=== PATIENT | female | born 1980 | race Caucasian/White ===

== ENCOUNTER 2019-07-02 07:23 | Inpatient (IN) ==
[2019-07-02] MEDS ORDERED: IOPAMIDOL 100 ML BOTTLE IV ONE (07:24)
[2019-07-02] MEDS ORDERED: ONDANSETRON 4 MG/2 ML VIAL IV ONE (07:46)
[2019-07-02] MEDS ORDERED: 0.9 % SODIUM CHLORIDE 1,000 ML IV ONE ×2 (07:46→11:27)
--- NOTE | 2019-07-02 07:51 | Emergency Department Note ---
Abdominal Pain HPI - General Chief Complaint: Abdominal Pain Stated Complaint: "Pancreatitis" Time Seen by Provider: 07/02/19 07:45 Source: patient Mode of arrival: ambulatory Limitations: no limitations - History of Present Illness MD Complaint: abdominal pain Onset (ago): day(s) Consistency: constant Location: epigastric Severity: severe Severity scale (1-10): 10 Quality: stabbing, sharp Radiation: epigastric, back Migration to: no migration Improves with: medication Worsens with: nothing Context: other (History of alcoholic pancreatitis) Associated symptoms: Reports: denies other symptoms - Related Data Home Medications Medication Instructions Recorded Confirmed Pantoprazole [Protonix] 40 mg PO QAMAC 07/04/15 08/09/16 Omeprazole [PriLOSEC] 20 mg PO 08/09/16 Previous Rx's Medication Instructions Recorded Promethazine [Phenergan] 25 mg PO Q4-6HP PRN #20 tablet 07/04/15 Allergies Allergy/AdvReac Type Severity Reaction Status Date / Time NO KNOWN DRUG ALLERGIES AdvReac Unknown Uncoded 08/09/16 00:19 Review of Systems All systems ED: reviewed and negative except as stated. Abdominal Pain PMH - Past Medical History PMF Narrative: All Active Problems Pancreatitis, alcoholic, acute (Acute) Constipation (Acute) Left against medical advice (Acute) Ectopic without intrauterine (Acute) Medical history: Reports: other (pancreatitis, alcohol abuse) Surgical history ED: Reports: no surgical history Family history: Reports: no significant family history - Social History Smoking status: Current every day smoker Alcohol use: Reports: Occasionally (states occasionallt, heavier in the past) Physical Exam Limitations: no limitations General appearance: alert, in no apparent distress Head: atraumatic, normocephalic Eye: Present: normal appearance, PERRL, EOMI. Absent: scleral icterus, conjunctival injection ENT: Present: normal oropharynx, mucous membranes moist Neck: Present: trachea midline. Absent: lymphadenopathy, thyromegaly Chest: Present: symmetric chest wall rise Respiratory: Present: normal lung sounds bilaterally. Absent: respiratory distress, wheezes, stridor, accessory muscle use, prolonged expiratory phase Cardiovascular: Present: regular rate, normal rhythm. Absent: systolic murmur, diastolic murmur Abdominal: Present: tenderness, guarding. Absent: soft, distention, rebound, rigidity, organomegaly, mass Abdominal tenderness: Present: epigastrium Extremities: Absent: pedal edema, pretibial edema, calf tenderness Back: Absent: CVA tenderness (R), CVA tenderness (L), spinous process tenderness Neurological: Present: alert, oriented X3 Psychiatric: Present: normal affect, normal mood Skin: Present: warm, dry Course Course Narrative: 46-year-old female presenting to the emergency department chief complaint of midepigastric abdominal pain. Patient with past medical history significant for alcoholic pancreatitis as well as AMA issues. Patient states this feels identical to past pancreatitis. Patient treated in the emergency department with IV fluids laboratories morphine Zofran and will assess for need for admission. Differential diagnosis considered in this case includes obstruction, perforation, mesenteric ischemia, Crohn's disease, ulcerative colitis, viral gastroenteritis, spontaneous bacterial peritonitis, ketoacidosis, adrenal insufficiency, foodborne illness, IBS, constipation, diverticulosis, diverticulitis, AAA, abdominal compartment syndrome, abdominal migraine, chronic abdominal pain, colonic pseudoobstruction, zoster, hypercalcemia, hypothyroidism, pulmonary causes, nephrolithiasis, pyelonephritis, urinary tract infection, appendicitis, AMI, pancreatitis, peptic ulcer disease, GERD, gastritis, functional dyspepsia, gastroparesis, cyclical vomiting syndrome. Patient with severe pain as the primary symptom. Laboratory evaluation obtained and CT scan was pending at time of shift change Dr. powell will assume care. Vital Signs Temperature 97.7 F 07/02/19 07:23 Pulse Rate 110 H 07/02/19 07:23 Respiratory Rate 24 H 07/02/19 07:23 Blood Pressure 128/83 07/02/19 07:23 Pulse Oximetry (%) 98 07/02/19 07:23 Temperature 97.7 F 07/02/19 07:23 Pulse Rate 110 H 07/02/19 07:23 Respiratory Rate 24 H 07/02/19 07:23 Blood Pressure 128/83 07/02/19 07:23 Pulse Oximetry (%) 98 07/02/19 07:23 Abdominal Pain - Lab Data Result diagrams: 07/02/19 07:58 07/02/19 07:58 Lab Results 07/02/19 Range/Units 07:58 WBC 11.5 H (4.5-11.0) K/mcL RBC 4.93 (4.00-5.20) M/mcL Hgb 15.9 H (12.0-15.0) g/dL Hct 47.8 (36.0-48.0) % MCV 97.0 (80.0-100.0) fL MCH 32.4 (26.0-34.0) pg MCHC 33.4 (31.0-36.0) g/dL RDW 15.6 H (11.5-14.5) % Plt Count 347 (140-440) K/mcL MPV 8.4 (7.4-10.4) fL Gran % 74.3 (38.0-78.0) % Lymph % (Auto) 15.5 (15.5-49.0) % [place] % (Auto) 6.4 (1.0-12.0) % Eos % (Auto) 3.1 (0.0-7.0) % Baso % (Auto) 0.7 (0.0-2.0) % Gran # 8.6 H (1.8-8.0) K/mcL Lymph # (Auto) 1.8 (1.5-4.8) K/mcL [place] # (Auto) 0.7 (0.1-0.9) K/mcL Eos # (Auto) 0.4 (0.0-0.7) K/mcL Baso # (Auto) 0.1 (0.0-0.3) K/mcL Disposition Pt seen by OFFICE MACHINERY OR EQUIPMENT INSTALLER/PA only: No Clinical Impression: Abdominal pain Qualifiers: Abdominal location: epigastric Qualified Code(s): R10.13 - Epigastric pain Disposition: Still a Patient Condition: Fair Referrals: Mena Atkins ARNP [Primary Care Provider] -
[2019-07-02 08:38] LABS: Basophils # (Auto) 0.1 K/mcL (0.0-0.3); Basophils % (Auto) 0.7 % (0.0-2.0); Eosinophils # (Auto) 0.4 K/mcL (0.0-0.7); Eosinophils % (Auto) 3.1 % (0.0-7.0); Granulocytes % (Auto) 74.3 % (38.0-78.0); Hematocrit 47.8 % (36.0-48.0); Hemoglobin 15.9 g/dL (12.0-15.0); Lymphocytes # (Auto) 1.8 K/mcL (1.5-4.8); Lymphocytes % (Auto) 15.5 % (15.5-49.0); Mean Corpuscular HGB Conc 33.4 g/dL (31.0-36.0); Mean Platelet Volume 8.4 fL (7.4-10.4); Monocytes # (Auto) 0.7 K/mcL (0.1-0.9); Monocytes % (Auto) 6.4 % (1.0-12.0); Platelet Count 347 K/mcL (140-440); RBC 4.93 M/mcL (4.00-5.20); Red Cell Distribution Width 15.6 % (11.5-14.5); WBC 11.5 K/mcL (4.5-11.0)
[2019-07-02] MEDS ORDERED: PHENobarb/HYOSCY/ATROPINE/SCOP 1 DOSE BOTTLE PO ONE (08:50)
[2019-07-02] MEDS ORDERED: PROMETHAZINE 25 MG/ML VIAL IV ONE (08:50)
[2019-07-02 09:05] LABS: ALT/SGPT 100 U/l (0-40); AST/SGOT 339 U/l (0-37); Albumin 4.7 gm/dL (3.2-5.2); Albumin/Globulin Ratio 1.3 (1.0-2.3); Alkaline Phosphatase 125 U/L (39-117); Bilirubin,Total 0.8 mg/dL (0.0-1.0); Blood Urea Nitrogen 7 mg/dl (6-20); Calcium 9.3 mg/dl (8.6-10.4); Carbon Dioxide 21 mmol/L (22-30); Chloride 97 mmol/L (96-108); Globulin 3.6 gm/dL (2.2-3.7); Glomerular Filtration Rate 114; Glucose 122 mg/dL (70-105)
--- NOTE | 2019-07-02 09:39 | Cat Scan Report ---
History: Abdominal pain and pancreatitis TECHNIQUE: The patient was imaged following intravenous but no oral contrast scanning from the diaphragm to the symphysis pubis. Sagittal and coronal reformats were created. Radiation exposure was limited using dose reduction technology. FINDINGS: The lung bases are clear. Small hiatus hernia is present. There is mild generalized fatty infiltration of the liver. The overall size liver is normal and there is no evidence of cirrhosis. The spleen is normal in size but heterogeneous. There are scattered small low density structures throughout the spleen which have remained stable since prior study done on 07/04/15. The fatty infiltration of liver has become worse. The gallbladder and bile ducts are normal. The overall size of the pancreas is normal. Pancreatic duct is nondilated. There is no evidence of pancreatic mass or pseudocyst. The adrenals and right kidney are normal. There is a 1 cm cortical cyst medially in the middle third of left kidney. The left kidney is otherwise normal. There are abnormally dilated ovarian veins which communicate with dilated periuterine veins. A 2 cm follicle is seen in the right ovary. No abnormality is identified in the left ovary. The bowel pattern is normal. No abnormality is seen within the urinary bladder. Trace amount of ascites is seen in the cul-de-sac and the right paracolic gutter. There is no evidence of an abscess or perforated bowel. IMPRESSION: Acute pancreatitis. Pelvic venous congestion with dilated ovarian and adnexal veins Fatty infiltration of the liver Dr. Mena was called with the results There is edema/inflammation of the retroperitoneal fat surrounding the pancreas. This extends outward into the right anterior pararenal space. Interpreted and Authenticated by: Jefferson Nails 07/02/19
[2019-07-02] MEDS ORDERED: LACTATED RINGERS 1,000 ML IV ONE (09:51)
[2019-07-02] MEDS ORDERED: POTASSIUM CHLORIDE 40 MEQ in DEXTROSE 5% IN WATER 500 ML IV ONE (09:52)
--- NOTE | 2019-07-02 09:52 | Emergency Department Note ---
Abdominal Pain HPI - General Chief Complaint: Abdominal Pain Stated Complaint: "Pancreatitis" Time Seen by Provider: 07/02/19 07:45 Source: patient Mode of arrival: ambulatory Limitations: no limitations - History of Present Illness MD Complaint: abdominal pain Location: epigastric Severity: severe Severity scale (1-10): 10 Quality: stabbing, sharp Migration to: no migration Improves with: medication Worsens with: nothing Context: other (History of alcoholic pancreatitis) Associated symptoms: Reports: denies other symptoms - Related Data Home Medications Medication Instructions Recorded Confirmed Pantoprazole [Protonix] 40 mg PO QAMAC 07/04/15 08/09/16 Omeprazole [PriLOSEC] 20 mg PO 08/09/16 Previous Rx's Medication Instructions Recorded Promethazine [Phenergan] 25 mg PO Q4-6HP PRN #20 tablet 07/04/15 Allergies Allergy/AdvReac Type Severity Reaction Status Date / Time NO KNOWN DRUG ALLERGIES AdvReac Unknown Uncoded 08/09/16 00:19 Abdominal Pain PMH - Past Medical History Medical history: Reports: other (pancreatitis, alcohol abuse) Family history: Reports: no significant family history - Social History Smoking status: Current every day smoker Alcohol use: Reports: Occasionally (states occasionallt, heavier in the past) Physical Exam Limitations: no limitations General appearance: alert, in no apparent distress Course Vital Signs Temperature 97.7 F 07/02/19 07:23 Pulse Rate 110 H 07/02/19 07:23 Respiratory Rate 24 H 07/02/19 07:23 Blood Pressure 128/83 07/02/19 07:23 Pulse Oximetry (%) 98 07/02/19 07:23 Temperature 97.7 F 07/02/19 07:23 Pulse Rate 76 07/02/19 11:39 Respiratory Rate 36 H 07/02/19 11:39 Blood Pressure 140/117 07/02/19 11:33 Pulse Oximetry (%) 100 07/02/19 11:39 Abdominal Pain - MDM Narrative Medical decision making narrative: This patient does have pancreatitis with a lipase of 1200 and evidence on her CT scan of inflammation but no pseudocyst. Patient has gone home in the past and would like to try to consider that a little bit later if possible. Her potassi um was low so we will give her some IV potassium. Patient did eventually decide that she would like to be admitted and I discussed the case with Dr. Hill and she will be admitted to the hospital. - Lab Data Result diagrams: 07/02/19 07:58 07/02/19 07:58 Lab Results 07/02/19 07/02/19 Range/Units 07:58 07:58 WBC 11.5 H (4.5-11.0) K/mcL RBC 4.93 (4.00-5.20) M/mcL Hgb 15.9 H (12.0-15.0) g/dL Hct 47.8 (36.0-48.0) % MCV 97.0 (80.0-100.0) fL MCH 32.4 (26.0-34.0) pg MCHC 33.4 (31.0-36.0) g/dL RDW 15.6 H (11.5-14.5) % Plt Count 347 (140-440) K/mcL MPV 8.4 (7.4-10.4) fL Gran % 74.3 (38.0-78.0) % Lymph % (Auto) 15.5 (15.5-49.0) % [place] % (Auto) 6.4 (1.0-12.0) % Eos % (Auto) 3.1 (0.0-7.0) % Baso % (Auto) 0.7 (0.0-2.0) % Gran # 8.6 H (1.8-8.0) K/mcL Lymph # (Auto) 1.8 (1.5-4.8) K/mcL [place] # (Auto) 0.7 (0.1-0.9) K/mcL Eos # (Auto) 0.4 (0.0-0.7) K/mcL Baso # (Auto) 0.1 (0.0-0.3) K/mcL Sodium 136 (133-145) mmol/L Potassium 2.8 L* (3.3-5.1) mmol/L Chloride 97 (96-108) mmol/L Carbon Dioxide 21 L (22-30) mmol/L Anion Gap 18.0 H (8-16) BUN 7 (6-20) mg/dl Creatinine 0.6 (0.6-1.1) mg/dl GFR Calculation 114 Glucose 122 H (70-105) mg/dL Calcium 9.3 (8.6-10.4) mg/dl Total Bilirubin 0.8 (0.0-1.0) mg/dL AST 339 H (0-37) U/l ALT 100 H (0-40) U/l Alkaline Phosphatase 125 H (39-117) U/L Total Protein 8.3 (5.9-8.4) gm/dL Albumin 4.7 (3.2-5.2) gm/dL Globulin 3.6 (2.2-3.7) gm/dL Albumin/Globulin Ratio 1.3 (1.0-2.3) Lipase 1205 H (7-60) U/L - Radiology Data Radiology results reviewed: Yes I reviewed the patient's radiology results. Disposition Pt seen by PRODUCT MANAGEMENT ANALYST/PA only: No Clinical Impression: Pancreatitis Abdominal pain Qualifiers: Abdominal location: epigastric Qualified Code(s): R10.13 - Epigastric pain Disposition: Xfer As Inpt ([facility]) Condition: Fair Referrals: Mena Atkins ARNP [Primary Care Provider] - Time of Disposition: 11:43
[2019-07-02] MEDS ORDERED: HYDROmorphone 2 MG/ML VIAL IV SCH ×4 (10:00→14:34)
[2019-07-02 12:24] LABS: Appearance,Urine CLEAR; Bacteria,Urine 0 /hpf (0); Bilirubin,Urine NEG (NEG); Color,Urine YELLOW; Culture Indicated,Urine NO; Glucose,Urine (UA) NEGATIVE (NEG); Ketones,Urine 80 mg/dL (NEG); Leukocyte Esterase,Urine NEG /uL (NEG); Nitrate,Urine NEG (NEG); Protein,Urine NEG (NEG); Specific Gravity,Urine 1.042 (1.000-1.035); Urine Blood 0.2 mg/dL (<0.03); Urine RBC 4 /hpf (0-1); Urine Squamous Epithelial Cell 1 /hpf (0-4); Urine WBC 2 /hpf (0-4); Urobilinogen,Urine NEG (NEG)
[2019-07-02] MEDS ORDERED: HYDROmorphone 2 MG/ML VIAL IV ONE (12:58)
--- NOTE | 2019-07-02 13:17 | Internal Med History&Physical ---
Medical - H&P: [facility] Patient information: Note initiated : 07/02/19 at 1:17 pm Service Date, if different from initiated Date: [] Patient: Azucena Almendarez a 38 y/o F admitted on for "Pancreatitis". Chief Complaint: "My pancreas hurts" History of present illness: Ms. Almendarez is a 38 year old F with a history of alcohol induced pancreatitis as well as peptic ulcer disease who presents with abdominal pain. Her chief compla int is "my pancreas hurts". Onset of the pain was yesterday when she woke up. Pain is in the epigastric, radiating to the left and right and to the back. It is up to 10/10 in intensity. She used Excedrin yesterday without much relief, had to work and reported to work. She comes to the ED today due to ongoing pain. Associated with nausea and emesis but no hematemesis. No diarrhea. She is felt warm but not had a documented fever. She has a history of pancreatitis in 2014, which was felt to be secondary to alcohol. She has no history of biliary disease, though does have her gallbladder. She also has a history of peptic ulcer disease with an EGD on 05/30/2015. In the emergency department, imaging was consistent with pancreatitis, lipase was elevated, she is being admitted for further treatment. She required multiple doses of IV opioids to control her pain in the ED. All systems: reviewed and no additional remarkable complaints except as stated Medical - H&P: PMH Medical history: Pancreatitis, alcoholic, acute (Acute) Constipation (Acute) Ectopic without intrauterine (Acute) Surgical history: History of appendectomy History of section Pertinent family history: No history of pancreatitis or pancreatic disease. Strong history of heart failure. Social history: Drinks 1-2 drinks at night, though at times more than that. She works as a senior linux systems administrator. She smokes probably less than half a pack of cigarettes a day. Medical - H&P: Meds Home Medications Medication Instructions Recorded Confirmed Type Omeprazole [PriLOSEC] 20 mg PO PRN PRN 08/09/16 07/02/19 History Allergies Allergy/AdvReac Type Severity Reaction Status Date / Time NO KNOWN DRUG ALLERGIES AdvReac Unknown Uncoded 08/09/16 00:19 Medical - H&P: Exam - Constitutional Vitals: Temp Pulse Resp BP Pulse Ox 97.7 F 77 27 H 133/88 99 07/02/19 07:23 07/02/19 12:01 07/02/19 12:16 07/02/19 12:16 07/02/19 12:01 Exam: GENERAL: Alert, in moderate distress, having difficulty getting comfortable. Cooperative, appears stated age. HEENT: Atraumatic. PERRL, conjunctiva clear, no scleral icterus. Hearing grossly intact. Oropharynx with moist mucous membranes. NECK: Supple without meningismus, no thyromegaly RESPIRATORY: Breath sounds clear bilaterally without wheezes or rhonchi. Respiratory effort is unlabored. CARDIOVASCULAR: Regular rate and rhythm, no murmur gallop or rub. No peripheral edema. Carotid pulses 2+ without bruit. Pedal pulses 2+. GI: Abdomen soft, moderate severe epigastric tenderness to palpation without guarding or rebound. Bowel sounds are diminished. No hepatosplenomegaly appreciated, though exam limited by pain. Negative Hill sign MUSCULOSKELETAL: No joint erythema or swelling, normal range of motion in all extremities. SKIN: Intact, warm, dry. No lesions. Skin turgor normal. NEUROLOGIC: Cranial nerves II through XII grossly intact. Muscle mass normal. Strength 5/5 in the upper and lower extremities. Sensation intact to light touch bilaterally. PSYCHIATRIC: Alert, oriented x3, mood and affect congruent with situation, normal insight. Medical - H&P: Reslt - Labs CBC & Chem 7: 07/02/19 07:58 07/02/19 16:12 Labs: Short CBC 07/02/19 Range/Units 07:58 WBC 11.5 H (4.5-11.0) K/mcL Hgb 15.9 H (12.0-15.0) g/dL Hct 47.8 (36.0-48.0) % Plt Count 347 (140-440) K/mcL BMP 07/02/19 07:58 Sodium 136 Potassium 2.8 L* Chloride 97 Carbon Dioxide 21 L BUN 7 Creatinine 0.6 Glucose 122 H Calcium 9.3 Liver Function 07/02/19 Range/Units 07:58 Total Bilirubin 0.8 (0.0-1.0) mg/dL AST 339 H (0-37) U/l ALT 100 H (0-40) U/l Alkaline Phosphatase 125 H (39-117) U/L Albumin 4.7 (3.2-5.2) gm/dL Urine 07/02/19 Range/Units 11:28 Urine Color Yellow Urine Appearance Clear Urine pH 7.0 (5.0-9.0) Ur Specific [place] 1.042 H (1.000-1.035) Urine Protein Neg (NEG) mg/dL Urine Glucose (UA) Negative (NEG) mg/dL Lipase 1205 - Imaging and Cardiology CT scan - abdomen Status: image reviewed by me Additional comments: IMPRESSION: Acute pancreatitis. Pelvic venous congestion with dilated ovarian and adnexal veins Fatty infiltration of the liver Medical - H&P: A/P (1) Pancreatitis, alcoholic, acute Current visit: No Status: Acute (2) Hypokalemia Current visit: Yes Status: Acute (3) Abnormal liver enzymes Current visit: Yes Status: Acute - Narrative A/P Narrative: 38-year-old female with acute abdominal pain, biochemical and imaging evidence of acute pancreatitis consistent with her exam. Acute pancreatitis, suspect alcohol related. No evidence of biliary disease on imaging. Her liver enzymes are abnormal, however her bilirubin is not elevated and is suspect part of the abnormality is due to alcohol. She required significant amounts of opioid to control her symptoms initially in the ED. She will require inpatient admission for treatment of her pancreatitis. Plan: Inpatient admission, IV opioids and Toradol for pain control, aggressive hydration, follow exam, n.p.o. except for sips and chips. Hypokalemia. May be secondary to nausea and vomiting over the last 2 days. Plan: Replete. Abnormal transaminases and alk phos. She also has fatty liver on imaging. Suspect this is alcohol related. Plan: Follow. CODE STATUS: Full code
[2019-07-02] MEDS ORDERED: KETOROLAC 30 MG/ML VIAL IV ONE (13:49)
[2019-07-02] MEDS ORDERED: KETOROLAC 30 MG/ML VIAL IV PRN (14:34)
[2019-07-02] MEDS ORDERED: ACETAMINOPHEN 325 MG TABLET PO PRN (14:34)
[2019-07-02] MEDS ORDERED: PROCHLORPERAZINE 10 MG/2 ML VIAL IV PRN (14:34)
[2019-07-02] MEDS: HYDROmorphone 2 MG/ML VIAL IV PRN ×3 (14:48→22:22)
[2019-07-02] MEDS: 0.9 % SODIUM CHLORIDE 10 ML SYRINGE IV SCH ×2 (15:45→22:26)
[2019-07-02] MEDS ORDERED: FAMOTIDINE/PF 20 MG/2 ML VIAL IV ONE (15:50)
[2019-07-02] MEDS: HYDROcodone/APAP 5/325MG TABLET PO PRN ×2 (16:21→21:07)
[2019-07-02] MEDS: NICOTINE 14 MG PATCH TOPICAL SCH (16:21)
[2019-07-02] MEDS: 0.9 % SODIUM CHLORIDE 1,000 ML IV SCH ×2 (16:22→23:22)
[2019-07-02] MEDS: FAMOTIDINE/PF 20 MG/2 ML VIAL IV SCH (21:00)
[2019-07-03] MEDS: HYDROcodone/APAP 5/325MG TABLET PO PRN ×5 (02:20→22:49)
[2019-07-03] MEDS: HYDROmorphone 2 MG/ML VIAL IV PRN ×8 (02:20→21:34)
[2019-07-03] MEDS: 0.9 % SODIUM CHLORIDE 10 ML SYRINGE IV SCH ×2 (04:16→13:11)
[2019-07-03 06:03] LABS: Basophils # (Auto) 0 K/mcL (0.0-0.3); Basophils % (Auto) 0.6 % (0.0-2.0); Eosinophils # (Auto) 0.6 K/mcL (0.0-0.7); Eosinophils % (Auto) 8.5 % (0.0-7.0); Granulocytes % (Auto) 51.2 % (38.0-78.0); Hematocrit 38.7 % (36.0-48.0); Hemoglobin 12.9 g/dL (12.0-15.0); Lymphocytes # (Auto) 2.3 K/mcL (1.5-4.8); Lymphocytes % (Auto) 31.2 % (15.5-49.0); Mean Cell Volume 98.7 fL (80.0-100.0); Mean Corpuscular HGB Conc 33.3 g/dL (31.0-36.0); Mean Platelet Volume 8.8 fL (7.4-10.4); Monocytes # (Auto) 0.6 K/mcL (0.1-0.9); Monocytes % (Auto) 8.5 % (1.0-12.0); Platelet Count 256 K/mcL (140-440); RBC 3.92 M/mcL (4.00-5.20); Red Cell Distribution Width 15.8 % (11.5-14.5); WBC 7.3 K/mcL (4.5-11.0)
[2019-07-03 06:22] LABS: ALT/SGPT 60 U/l (0-40); AST/SGOT 96 U/l (0-37); Albumin 3.5 gm/dL (3.2-5.2); Albumin/Globulin Ratio 1.3 (1.0-2.3); Alkaline Phosphatase 89 U/L (39-117); Bilirubin,Direct < 0.2 mg/dL (0.0-0.3); Bilirubin,Total 0.5 mg/dL (0.0-1.0); Blood Urea Nitrogen 6 mg/dl (6-20); Calcium 8.1 mg/dl (8.6-10.4); Carbon Dioxide 21 mmol/L (22-30); Chloride 103 mmol/L (96-108); Globulin 2.7 gm/dL (2.2-3.7); Glomerular Filtration Rate 114; Glucose 116 mg/dL (70-105); Lactate Dehydrogenase 199 U/L (94-250); Phosphorous 2.4 mg/dL (2.7-4.5); Triglycerides 60 mg/dl (<150); Uric Acid 1.6 mg/dL (2.5-8.0)
[2019-07-03] MEDS: 0.9 % SODIUM CHLORIDE 1,000 ML IV SCH ×2 (07:41→15:20)
[2019-07-03] MEDS: FAMOTIDINE/PF 20 MG/2 ML VIAL IV SCH ×2 (09:02→21:34)
[2019-07-03] MEDS: NICOTINE 14 MG PATCH TOPICAL SCH (11:13)
[2019-07-03] MEDS ORDERED: ESOMEPRAZOLE 40 MG VIAL IV ONE (13:15)
--- NOTE | 2019-07-03 13:21 | Internal Med Progress Note ---
Medical - PN: Subj Patient information: Note initiated : 07/03/19 at 1:19 pm Service Date, if different from initiated Date: [] Patient: Azucena Almendarez 38 y/o F admitted on 07/02/19 for "Pancreatitis". Chief Complaint: Follow-up pancreatitis Interval history: Ms. Almendarez is a 38 year old F with a history of alcohol induced pancreatitis as well as peptic ulcer disease who presents with abdominal pain. Her chief compl aint is "my pancreas hurts". Onset of the pain was yesterday when she woke up. Pain is in the epigastric, radiating to the left and right and to the back. It is up to 10/10 in intensity. She used Excedrin yesterday without much relief, had to work and reported to work. She comes to the ED today due to ongoing pain. Associated with nausea and emesis but no hematemesis. No diarrhea. She is felt warm but not had a documented fever. She has a history of pancreatitis in 2014, which was felt to be secondary to alcohol. She has no history of biliary disease, though does have her gallbladder. She also has a history of peptic ulcer disease with an EGD on 05/30/2015. In the emergency department, imaging was consistent with pancreatitis, lipase was elevated, she is being admitted for further treatment. She required multiple doses of IV opioids to control her pain in the ED. 9/2patient still with significant pain, requiring intravenous and oral opioids as well as Toradol. No nausea or vomiting. Tolerating sips and ice chips, does not feel she is ready to try clears. Pain is radiating into the back. Hemoglobin is not concentrating, actually decreased with hydration as expected with dilution. BUN stable, does not appear to be having significant third spacing. Complaining of a lot of heartburn. Currently on Pepcid twice daily intravenously. - Constitutional Vitals: Vital Signs Temp Pulse Resp BP Pulse Ox 97.8 F 75 18 108/71 99 07/03/19 11:21 07/03/19 11:21 07/03/19 11:21 07/03/19 11:21 07/03/19 11:21 Period Temp Pulse Resp BP Sys/[place] Pulse Ox Last 24 Hr 97.6 F-98.2 F 75-101 15-20 90-132/55-89 96-100 Intake and Output 07/02/19 07/03/19 07/03/19 21:59 05:59 13:59 Intake Total 1817 626 7901 Output Total 600 50 Balance 422 032 1357 Weight 135 lb Intake & Output: Intake & Output 07/02/19 07/03/19 07/03/19 21:59 05:59 13:59 Intake Total 7652 690 8125 Output Total 600 50 Balance 168 427 8908 Weight 135 lb Intake: IV 0130 948 8109 Sodium Chloride 0.9% 1,000 ml @ 875 1000 125 mls/hr IV .Q8H [facility] Rx#: [id number] Oral 100 Output: Void Amount 600 50 Other: Urine Color Dark Yellow Urine Odor Normal # Voids 2 Exam: General: Sitting up in bed, appears uncomfortable Chest: Clear to auscultation to the bases, no rales Cardiovascular: Regular, no peripheral edema Abdomen: Soft, moderate epigastric tenderness to palpation, decreased bowel sounds Neuro: Alert, oriented to person, place, situation, ambulating in the holder. Medical - PN: Obj Da - Labs CBC & Chem 7: 07/03/19 04:42 07/03/19 04:42 Labs: Abnormal Lab Results 07/03/19 07/03/19 07/02/19 04:42 04:42 11:28 WBC RBC 3.92 L Hgb RDW 15.8 H Eos % (Auto) 8.5 H Gran # Potassium 3.0 L Carbon Dioxide 21 L Anion Gap Glucose 116 H Uric Acid 1.6 L Calcium 8.1 L Phosphorus 2.4 L GGT 102 H AST 96 H ALT 60 H Alkaline Phosphatase Lipase Ur Specific [place] 1.042 H Urine Ketones 80 A Urine Occult Blood 0.2 A Urine RBC 4 H 07/02/19 07/02/19 07:58 07:58 WBC 11.5 H RBC Hgb 15.9 H RDW 15.6 H Eos % (Auto) Gran # 8.6 H Potassium 2.8 L* Carbon Dioxide 21 L Anion Gap 18.0 H Glucose 122 H Uric Acid Calcium Phosphorus GGT AST 339 H ALT 100 H Alkaline Phosphatase 125 H Lipase 1205 H Ur Specific [place] Urine Ketones Urine Occult Blood Urine RBC Meds: Medications Acetaminophen (Tylenol) 650 mg PO Q6HP PRN PRN Reason: PAIN/FEVER > 101 Hydrocodone Bitart/Acetaminophen ([place] 5/325mg) 1 tab PO Q4HP PRN PRN Reason: PAIN LEVEL 3-6 Last Admin: 07/03/19 13:13 Dose: 1 tab Documented by: Al Hydrox/Mg Hydrox/Simethicone (Maalox) 30 ml PO Q4HP PRN PRN Reason: Dyspepsia Esomeprazole Magnesium (Nexium) 40 mg IV QAMAC [facility] Esomeprazole Magnesium (Nexium) 40 mg IV ONCE [facility] Famotidine (Pepcid) 20 mg IV Q12 [facility] Stop: 07/04/19 10:00 Last Admin: 07/03/19 09:02 Dose: 20 mg Documented by: Hydromorphone HCl (Dilaudid) 2 mg IV Q2HP PRN PRN Reason: PAIN LEVEL > 6 Sodium Chloride (Sodium Chloride 0.9%) 1,000 mls @ 125 mls/hr IV .Q8H [facility] Last Admin: 07/03/19 07:41 Dose: 125 mls/hr Documented by: Ketorolac Tromethamine (Toradol) 30 mg IV Q6HP PRN PRN Reason: Pain Stop: 07/05/19 13:09 Nicotine (Nicoderm) 14 mg TOPICAL DAILY@1000 QAMAR Last Admin: 07/03/19 11:13 Dose: 14 mg Documented by: Ondansetron HCl (Zofran) 4 mg IV Q6HP PRN PRN Reason: Nausea And Vomiting Prochlorperazine (Compazine) 5 mg IV Q4HP PRN PRN Reason: Nausea And Vomiting Sodium Chloride (Saline Flush) 10 ml IV Q8 [facility] Last Admin: 07/03/19 13:11 Dose: Not Given Documented by: Medical - PN: A/P (1) Pancreatitis, alcoholic, acute Status: Acute Current Visit: No (2) Hypokalemia Status: Acute Current Visit: Yes (3) Abnormal liver enzymes Status: Acute Current Visit: Yes - Narrative A/P Narrative: 38-year-old female with acute abdominal pain, biochemical and imaging evidence of acute pancreatitis consistent with her exam. Acute pancreatitis. Stable though not significantly improving. No current evidence of third spacing or hemoconcentration. Suspect etiology is alcohol related. No evidence of biliary disease on imaging. She still requires significant amount of opioids to help control her symptoms and requires inpatient care. High risk given use of high-dose intravenous controlled substances. Plan: Inpatient admission, IV opioids and Toradol for pain control, aggressive hydration, follow exam, n.p.o. except for sips and chips. Hypokalemia. May be secondary to nausea and vomiting over the last 2 days. Still with hypokalemia this morning Plan: Replete as needed. Abnormal transaminases and alk phos. Improving. She also has fatty liver on imaging. Suspect this is alcohol related. Plan: Follow.
[2019-07-03] MEDS: MAG HYDROX/AL HYDROX/SIMETH 30 ML ORAL.SUSP PO PRN (13:47)
[2019-07-03] MEDS ORDERED: POTASSIUM CHLORIDE 40 MEQ in DEXTROSE 5% IN WATER 500 ML IV ONE (18:24)
[2019-07-03] MEDS ORDERED: POTASSIUM CHLORIDE 20 MEQ/10 ML VIAL IV ONE (19:23)
[2019-07-03] MEDS: KETOROLAC 30 MG/ML VIAL IV PRN (22:49)
[2019-07-04] MEDS: HYDROmorphone 2 MG/ML VIAL IV PRN ×10 (00:13→22:06)
[2019-07-04] MEDS: 0.9 % SODIUM CHLORIDE 1,000 ML IV SCH ×5 (02:38→23:35)
[2019-07-04] MEDS: 0.9 % SODIUM CHLORIDE 10 ML SYRINGE IV SCH ×4 (06:12→21:50)
[2019-07-04] MEDS: HYDROcodone/APAP 5/325MG TABLET PO PRN ×4 (07:30→19:52)
[2019-07-04 08:33] LABS: Basophils # (Auto) 0 K/mcL (0.0-0.3); Basophils % (Auto) 0.6 % (0.0-2.0); Eosinophils # (Auto) 0.5 K/mcL (0.0-0.7); Eosinophils % (Auto) 6.3 % (0.0-7.0); Granulocytes % (Auto) 48.9 % (38.0-78.0); Hematocrit 37.6 % (36.0-48.0); Hemoglobin 12.7 g/dL (12.0-15.0); Lymphocytes # (Auto) 2.6 K/mcL (1.5-4.8); Mean Cell Volume 97.4 fL (80.0-100.0); Mean Corpuscular HGB Conc 33.7 g/dL (31.0-36.0); Mean Platelet Volume 8.6 fL (7.4-10.4); Monocytes # (Auto) 0.7 K/mcL (0.1-0.9); Monocytes % (Auto) 9.2 % (1.0-12.0); Platelet Count 256 K/mcL (140-440); RBC 3.87 M/mcL (4.00-5.20); WBC 7.4 K/mcL (4.5-11.0)
[2019-07-04 08:53] LABS: ALT/SGPT 46 U/l (0-40); AST/SGOT 47 U/l (0-37); Albumin 3.4 gm/dL (3.2-5.2); Albumin/Globulin Ratio 1.3 (1.0-2.3); Alkaline Phosphatase 107 U/L (39-117); Bilirubin,Direct < 0.2 mg/dL (0.0-0.3); Bilirubin,Total 0.4 mg/dL (0.0-1.0); Blood Urea Nitrogen 4 mg/dl (6-20); Calcium 8.1 mg/dl (8.6-10.4); Carbon Dioxide 24 mmol/L (22-30); Chloride 106 mmol/L (96-108); Globulin 2.6 gm/dL (2.2-3.7); Glomerular Filtration Rate 114; Glucose 95 mg/dL (70-105); Lactate Dehydrogenase 152 U/L (94-250); Phosphorous 3.1 mg/dL (2.7-4.5); Triglycerides 111 mg/dl (<150); Uric Acid 2.3 mg/dL (2.5-8.0)
[2019-07-04] MEDS: ESOMEPRAZOLE 40 MG VIAL IV SCH (08:57)
[2019-07-04] MEDS: FAMOTIDINE/PF 20 MG/2 ML VIAL IV SCH (08:57)
[2019-07-04] MEDS: NICOTINE 14 MG PATCH TOPICAL SCH (08:58)
[2019-07-04] MEDS: KETOROLAC 30 MG/ML VIAL IV PRN ×2 (10:59→16:55)
[2019-07-04] MEDS: ONDANSETRON 4 MG/2 ML VIAL IV PRN (12:11)
--- NOTE | 2019-07-04 12:14 | Internal Med Progress Note ---
Medical - PN: Subj Patient information: Note initiated : 07/04/19 at 12:11 pm Service Date, if different from initiated Date: [] Patient: Azucena Almendarez a 38 y/o F admitted on 07/02/19 for "Pancreatitis". Chief Complaint: Follow-up pancreatitis Interval history: Ms. Almendarez is a 38 year old F with a history of alcohol induced pancreatitis as well as peptic ulcer disease who presents with abdominal pain. Her chief comp laint is "my pancreas hurts". Onset of the pain was yesterday when she woke up. Pain is in the epigastric, radiating to the left and right and to the back. It is up to 10/10 in intensity. She used Excedrin yesterday without much relief, had to work and reported to work. She comes to the ED today due to ongoing pain. Associated with nausea and emesis but no hematemesis. No diarrhea. She is felt warm but not had a documented fever. She has a history of pancreatitis in 2014, which was felt to be secondary to alcohol. She has no history of biliary disease, though does have her gallbladder. She also has a history of peptic ulcer disease with an EGD on 05/30/2015. In the emergency department, imaging was consistent with pancreatitis, lipase was elevated, she is being admitted for further treatment. She required multiple doses of IV opioids to control her pain in the ED. 9/2patient still with significant pain, requiring intravenous and oral opioids as well as Toradol. No nausea or vomiting. Tolerating sips and ice chips, does not feel she is ready to try clears. Pain is radiating into the back. Hemoglobin is not concentrating, actually decreased with hydration as expected with dilution. BUN stable, does not appear to be having significant third spacing. Complaining of a lot of heartburn. Currently on Pepcid twice daily intravenously. 9/3slowly improving. Better pain control on higher dose of hydromorphone. Less radiation into her back this morning. Feels like she might be able to try clear liquids. Reflux symptoms improved with acid suppression therapy. Discussed need to abstain from alcohol entirely to prevent any further episodes of pancreatitis. - Constitutional Vitals: Vital Signs Temp Pulse Resp BP Pulse Ox 98.0 F 84 20 118/79 97 07/04/19 07:55 07/04/19 07:55 07/04/19 07:55 07/04/19 07:55 07/04/19 07:55 Period Temp Pulse Resp BP Sys/[place] Pulse Ox Last 24 Hr 97.9 F-98.6 F 75-85 18-20 118-131/77-89 97-99 Intake and Output 07/03/19 07/04/19 07/04/19 21:59 05:59 13:59 Intake Total 1056 1000 1000 Output Total 300 500 400 Balance 756 500 600 Weight 143 lb 11.2 oz Intake & Output: Intake & Output 07/03/19 07/04/19 07/04/19 21:59 05:59 13:59 Intake Total 1056 1000 1000 Output Total 300 500 400 Balance 756 500 600 Weight 143 lb 11.2 oz Intake: IV 956 1000 1000 Sodium Chloride 0.9% 1,000 ml @ 956 1000 1000 125 mls/hr IV .Q8H [facility] Rx#: [id number] Oral 100 0 Output: Void Amount 300 500 400 Other: Urine Appearance Cloudy Urine Color Dark Yellow # Voids 1 Exam: General: Laying in bed, mildly uncomfortable Chest: Clear, good aeration to bases Cardiovascular: Regular Abdomen soft, mild to moderate epigastric tenderness, no guarding or rebound Extremities: No edema Neuro: Alert, oriented x3, nonfocal Medical - PN: Obj Da - Labs CBC & Chem 7: 07/04/19 07:30 07/04/19 07:30 Labs: Abnormal Lab Results 07/04/19 07/04/19 07/03/19 07:30 07:30 04:42 WBC RBC 3.87 L Hgb RDW 16.0 H Eos % (Auto) Gran # Potassium 3.0 L Carbon Dioxide 21 L Anion Gap BUN 4 L Glucose 116 H Uric Acid 2.3 L 1.6 L Calcium 8.1 L 8.1 L Phosphorus 2.4 L GGT 173 H 102 H AST 47 H 96 H ALT 46 H 60 H Alkaline Phosphatase Lipase 194 H Ur Specific [place] Urine Ketones Urine Occult Blood Urine RBC 07/03/19 07/02/19 07/02/19 04:42 11:28 07:58 WBC 11.5 H RBC 3.92 L Hgb 15.9 H RDW 15.8 H 15.6 H Eos % (Auto) 8.5 H Gran # 8.6 H Potassium Carbon Dioxide Anion Gap BUN Glucose Uric Acid Calcium Phosphorus GGT AST ALT Alkaline Phosphatase Lipase Ur Specific [place] 1.042 H Urine Ketones 80 A Urine Occult Blood 0.2 A Urine RBC 4 H 07/02/19 07:58 WBC RBC Hgb RDW Eos % (Auto) Gran # Potassium 2.8 L* Carbon Dioxide 21 L Anion Gap 18.0 H BUN Glucose 122 H Uric Acid Calcium Phosphorus GGT AST 339 H ALT 100 H Alkaline Phosphatase 125 H Lipase 1205 H Ur Specific [place] Urine Ketones Urine Occult Blood Urine RBC Meds: Medications Acetaminophen (Tylenol) 650 mg PO Q6HP PRN PRN Reason: PAIN/FEVER > 101 Hydrocodone Bitart/Acetaminophen ([place] 5/325mg) 1 tab PO Q4HP PRN PRN Reason: PAIN LEVEL 3-6 Last Admin: 07/04/19 11:39 Dose: 1 tab Documented by: Al Hydrox/Mg Hydrox/Simethicone (Maalox) 30 ml PO Q4HP PRN PRN Reason: Dyspepsia Last Admin: 07/03/19 13:47 Dose: 30 ml Documented by: Esomeprazole Magnesium (Nexium) 40 mg IV QAMAC [facility] Last Admin: 07/04/19 08:57 Dose: 40 mg Documented by: Hydromorphone HCl (Dilaudid) 2 mg IV Q2HP PRN PRN Reason: PAIN LEVEL > 6 Last Admin: 07/04/19 11:41 Dose: 2 mg Documented by: Sodium Chloride (Sodium Chloride 0.9%) 1,000 mls @ 125 mls/hr IV .Q8H [facility] Last Admin: 07/04/19 10:59 Dose: 125 mls/hr Documented by: Ketorolac Tromethamine (Toradol) 30 mg IV Q6HP PRN PRN Reason: Pain Stop: 07/05/19 13:09 Last Admin: 07/04/19 10:59 Dose: 30 mg Documented by: Nicotine (Nicoderm) 14 mg TOPICAL DAILY@1000 [facility] Last Admin: 07/04/19 08:58 Dose: 14 mg Documented by: Ondansetron HCl (Zofran) 4 mg IV Q6HP PRN PRN Reason: Nausea And Vomiting Prochlorperazine (Compazine) 5 mg IV Q4HP PRN PRN Reason: Nausea And Vomiting Sodium Chloride (Saline Flush) 10 ml IV Q8 [facility] Last Admin: 07/04/19 06:12 Dose: Not Given Documented by: Medical - PN: A/P - Time Spent With Patient Total time spent is greater than 50% in coordination of care (as documented) at patient's floor/unit and/or counseling patient: 25 - 35 minutes (1) Pancreatitis, alcoholic, acute Status: Acute Current Visit: No (2) Hypokalemia Status: Acute Current Visit: Yes (3) Abnormal liver enzymes Status: Acute Current Visit: Yes - Narrative A/P Narrative: 38-year-old female with acute abdominal pain, biochemical and imaging evidence of acute pancreatitis consistent with her exam. Acute pancreatitis. Improving. No current evidence of third spacing or hemoconcentration. Suspect etiology is alcohol related. No evidence of biliary disease on imaging. She still requires significant amount of opioids to help c ontrol her symptoms and requires inpatient care. High risk given use of high- dose intravenous controlled substances. Plan: Continue IV opioids and Toradol for pain control, aggressive hydration, fo llow exam, begin clear liquid. Hypokalemia. May be secondary to nausea and vomiting over the last 2 days. Still with hypokalemia this morning Plan: Replete as needed. Abnormal transaminases and alk phos. Improving. She also has fatty liver on imaging. Suspect this is alcohol related. Plan: Follow.
[2019-07-04] MEDS: MAG HYDROX/AL HYDROX/SIMETH 30 ML ORAL.SUSP PO PRN (15:36)
[2019-07-05] MEDS: HYDROmorphone 2 MG/ML VIAL IV PRN ×8 (00:04→22:14)
[2019-07-05] MEDS: KETOROLAC 30 MG/ML VIAL IV PRN ×2 (00:05→07:22)
[2019-07-05] MEDS: HYDROcodone/APAP 5/325MG TABLET PO PRN ×6 (00:16→22:14)
[2019-07-05] MEDS: 0.9 % SODIUM CHLORIDE 1,000 ML IV SCH ×5 (02:43→19:49)
[2019-07-05 06:36] LABS: Basophils # (Auto) 0.1 K/mcL (0.0-0.3); Basophils % (Auto) 0.8 % (0.0-2.0); Eosinophils # (Auto) 0.4 K/mcL (0.0-0.7); Eosinophils % (Auto) 5.2 % (0.0-7.0); Granulocytes % (Auto) 49.7 % (38.0-78.0); Hemoglobin 11.8 g/dL (12.0-15.0); Lymphocytes # (Auto) 2.5 K/mcL (1.5-4.8); Lymphocytes % (Auto) 33.8 % (15.5-49.0); Mean Cell Volume 98.7 fL (80.0-100.0); Mean Corpuscular HGB Conc 32.8 g/dL (31.0-36.0); Mean Platelet Volume 8.6 fL (7.4-10.4); Monocytes # (Auto) 0.8 K/mcL (0.1-0.9); Monocytes % (Auto) 10.5 % (1.0-12.0); Platelet Count 246 K/mcL (140-440); RBC 3.64 M/mcL (4.00-5.20); Red Cell Distribution Width 15.3 % (11.5-14.5); WBC 7.4 K/mcL (4.5-11.0)
[2019-07-05] MEDS: 0.9 % SODIUM CHLORIDE 10 ML SYRINGE IV SCH ×3 (07:07→22:15)
[2019-07-05 07:20] LABS: ALT/SGPT 32 U/l (0-40); AST/SGOT 27 U/l (0-37); Albumin 3.2 gm/dL (3.2-5.2); Albumin/Globulin Ratio 1.2 (1.0-2.3); Alkaline Phosphatase 102 U/L (39-117); Bilirubin,Direct < 0.2 mg/dL (0.0-0.3); Bilirubin,Total 0.3 mg/dL (0.0-1.0); Blood Urea Nitrogen 3 mg/dl (6-20); Calcium 8.2 mg/dl (8.6-10.4); Carbon Dioxide 23 mmol/L (22-30); Chloride 104 mmol/L (96-108); Globulin 2.6 gm/dL (2.2-3.7); Glomerular Filtration Rate 114; Glucose 102 mg/dL (70-105); Lactate Dehydrogenase 188 U/L (94-250); Phosphorous 3.1 mg/dL (2.7-4.5); Triglycerides 112 mg/dl (<150); Uric Acid 2.9 mg/dL (2.5-8.0)
[2019-07-05] MEDS: ESOMEPRAZOLE 40 MG VIAL IV SCH (07:21)
[2019-07-05] MEDS ORDERED: HYDROmorphone 2 MG/ML VIAL IV PRN ×2 (08:49→13:59)
[2019-07-05] MEDS: NICOTINE 14 MG PATCH TOPICAL SCH (10:16)
--- NOTE | 2019-07-05 12:11 | Internal Med Progress Note ---
Medical - PN: Subj Patient information: Note initiated : 07/05/19 at 11:59 am Service Date, if different from initiated Date: [] Patient: Azucena Almendarez a 38 y/o F admitted on 07/02/19 for "Pancreatitis". Chief Complaint: [] Interval history: Ms. Almendarez is a 38 year old F with a history of alcohol induced pancreatitis as well as peptic ulcer disease who presents with abdominal pain. Her chief complaint is "my pancreas hurts". Onset of the pain was yesterday when she woke up. Pain is in the epigastric, radiating to the left and right and to the back. It is up to 10/10 in intensity. She used Excedrin yesterday without much relief, had to work and reported to work. She comes to the ED today due to ongoing pain. Associated with nausea and emesis but no hematemesis. No diarrhea. She is felt warm but not had a documented fever. She has a history of pancreatitis in 2014, which was felt to be secondary to alcohol. She has no history of biliary disease, though does have her gallbladder. She also has a history of peptic ulcer disease with an EGD on 05/30/2015. In the emergency department, imaging was consistent with pancreatitis, lipase was elevated, she is being admitted for further treatment. She required multiple doses of IV opioids to control her pain in the ED. 9/2patient still with significant pain, requiring intravenous and oral opioids as well as Toradol. No nausea or vomiting. Tolerating sips and ice chips, does not feel she is ready to try clears. Pain is radiating into the back. Hemoglobin is not concentrating, actually decreased with hydration as expected with dilution. BUN stable, does not appear to be having significant third spacing. Complaining of a lot of heartburn. Currently on Pepcid twice daily intravenously. 9/3slowly improving. Better pain control on higher dose of hydromorphone. Less radiation into her back this morning. Feels like she might be able to try clear liquids. Reflux symptoms improved with acid suppression therapy. Discussed need to abstain from alcohol entirely to prevent any further episodes of pancreatitis. 9/4-patient needing excessive dose of opioid. However clinical finding disproportionate to lab and hemodynamic changes. Keep n.p.o./crystalloids. Repeat imaging in a.m., check CRP. Counseled for alcohol cessation. Lipase downtrending from 1200 to near normal level at 125 - Constitutional Vitals: Vital Signs Temp Pulse Resp BP Pulse Ox 96.6 F L 67 14 107/68 98 07/05/19 07:40 07/05/19 07:40 07/05/19 07:40 07/05/19 07:40 07/05/19 07:40 Period Temp Pulse Resp BP Sys/[place] Pulse Ox Last 24 Hr 96.6 F-98.6 F 67-78 12-20 107-142/68-92 96-99 Intake and Output 07/04/19 07/05/19 07/05/19 21:59 05:59 13:59 Intake Total 1951 1435 1000 Output Total 1150 1300 Balance 901 674 3940 Weight 142 lb Intake & Output: Intake & Output 07/04/19 07/05/19 07/05/19 21:59 05:59 13:59 Intake Total 1951 1435 1000 Output Total 1150 1300 Balance 450 931 8419 Weight 142 lb Intake: IV 566 208 3679 Sodium Chloride 0.9% 1,000 ml @ 575 829 2207 125 mls/hr IV .Q8H [facility] Rx#: [id number] Oral 960 460 Output: Void Amount 1150 1300 Other: Meal Dinner Percent of Meal Consumed 100% Feeding Ability Independent Urine Color Straw Dark Yellow General appearance: moderate distress (Abdominal pain/nausea) Exam: Anxious and tearful Nonlabored breathing Nondistended abdomen No lymphedema or icterus Medical - PN: Obj Da - Labs CBC & Chem 7: 07/05/19 04:20 07/05/19 04:20 Labs: Abnormal Lab Results 07/05/19 07/05/19 07/04/19 04:20 04:20 07:30 RBC 3.64 L 3.87 L Hgb 11.8 L RDW 15.3 H 16.0 H Eos % (Auto) Potassium Carbon Dioxide BUN 3 L Glucose Uric Acid Calcium 8.2 L Phosphorus GGT 176 H AST ALT Total Protein 5.8 L Lipase 125 H Ur Specific [place] Urine Ketones Urine Occult Blood Urine RBC 07/04/19 07/03/19 07/03/19 07:30 04:42 04:42 RBC 3.92 L Hgb RDW 15.8 H Eos % (Auto) 8.5 H Potassium 3.0 L Carbon Dioxide 21 L BUN 4 L Glucose 116 H Uric Acid 2.3 L 1.6 L Calcium 8.1 L 8.1 L Phosphorus 2.4 L GGT 173 H 102 H AST 47 H 96 H ALT 46 H 60 H Total Protein Lipase 194 H Ur Specific [place] Urine Ketones Urine Occult Blood Urine RBC 07/02/19 11:28 RBC Hgb RDW Eos % (Auto) Potassium Carbon Dioxide BUN Glucose Uric Acid Calcium Phosphorus GGT AST ALT Total Protein Lipase Ur Specific [place] 1.042 H Urine Ketones 80 A Urine Occult Blood 0.2 A Urine RBC 4 H Meds: Medications Acetaminophen (Tylenol) 650 mg PO Q6HP PRN PRN Reason: PAIN/FEVER > 101 Hydrocodone Bitart/Acetaminophen ([place] 5/325mg) 1 tab PO Q4HP PRN PRN Reason: PAIN LEVEL 3-6 Last Admin: 07/05/19 10:15 Dose: 1 tab Documented by: Al Hydrox/Mg Hydrox/Simethicone (Maalox) 30 ml PO Q4HP PRN PRN Reason: Dyspepsia Last Admin: 07/04/19 15:36 Dose: 30 ml Documented by: Esomeprazole Magnesium (Nexium) 40 mg IV QAMAC [facility] Last Admin: 07/05/19 07:21 Dose: 40 mg Documented by: Hydromorphone HCl (Dilaudid) 0.5 mg IV Q4-6HP PRN PRN Reason: PAIN LEVEL > 6 Last Admin: 07/05/19 11:31 Dose: 0.5 mg Documented by: Sodium Chloride (Sodium Chloride 0.9%) 1,000 mls @ 125 mls/hr IV .Q8H [facility] Last Admin: 07/05/19 11:37 Dose: 125 mls/hr Documented by: Ketorolac Tromethamine (Toradol) 30 mg IV Q6HP PRN PRN Reason: Pain Stop: 07/05/19 13:09 Last Admin: 07/05/19 07:22 Dose: 30 mg Documented by: Nicotine (Nicoderm) 14 mg TOPICAL DAILY@1000 [facility] Last Admin: 07/05/19 10:16 Dose: 14 mg Documented by: Ondansetron HCl (Zofran) 4 mg IV Q6HP PRN PRN Reason: Nausea And Vomiting Last Admin: 07/04/19 12:11 Dose: 4 mg Documented by: Prochlorperazine (Compazine) 5 mg IV Q4HP PRN PRN Reason: Nausea And Vomiting Sodium Chloride (Saline Flush) 10 ml IV Q8 [facility] Last Admin: 07/05/19 07:07 Dose: Not Given Documented by: Medical - PN: A/P - Time Spent With Patient Total time spent is greater than 50% in coordination of care (as documented) at patient's floor/unit and/or counseling patient: 25 - 35 minutes - Narrative A/P Narrative: 38-year-old female with acute abdominal pain, biochemical and imaging evidence of acute pancreatitis consistent with her exam. * Acute alcoholic pancreatitis. No evidence of pseudocyst or hemorrhage. Continue conservative management with n.p.o., crystalloids, antiemetics and pain management. Alcohol cessation counseling. * Hypokalemia. Replace as indicated * Abdominal pain on as needed opioids Plan * Continue crystalloids, n.p.o. with conservative management * Electrolyte replacement * Repeat CT abdomen in a.m. * Inflammatory marker
[2019-07-05] MEDS: ONDANSETRON 4 MG/2 ML VIAL IV PRN (13:02)
[2019-07-05] MEDS: MAG HYDROX/AL HYDROX/SIMETH 30 ML ORAL.SUSP PO PRN (14:04)
[2019-07-06] MEDS: 0.9 % SODIUM CHLORIDE 1,000 ML IV SCH ×5 (00:59→16:36)
[2019-07-06] MEDS: HYDROcodone/APAP 5/325MG TABLET PO PRN ×4 (03:53→18:46)
[2019-07-06] MEDS: HYDROmorphone 2 MG/ML VIAL IV PRN ×3 (03:54→14:17)
[2019-07-06] MEDS: 0.9 % SODIUM CHLORIDE 10 ML SYRINGE IV SCH ×2 (04:23→16:35)
[2019-07-06 06:03] LABS: Basophils # (Auto) 0 K/mcL (0.0-0.3); Basophils % (Auto) 0.5 % (0.0-2.0); Eosinophils # (Auto) 0.3 K/mcL (0.0-0.7); Eosinophils % (Auto) 4.3 % (0.0-7.0); Granulocytes % (Auto) 53.9 % (38.0-78.0); Hematocrit 36.7 % (36.0-48.0); Hemoglobin 12.5 g/dL (12.0-15.0); Lymphocytes % (Auto) 31.2 % (15.5-49.0); Mean Cell Volume 97.4 fL (80.0-100.0); Mean Corpuscular HGB Conc 34.1 g/dL (31.0-36.0); Mean Platelet Volume 8.5 fL (7.4-10.4); Monocytes # (Auto) 0.6 K/mcL (0.1-0.9); Monocytes % (Auto) 10.1 % (1.0-12.0); Platelet Count 273 K/mcL (140-440); RBC 3.76 M/mcL (4.00-5.20); Red Cell Distribution Width 15.4 % (11.5-14.5); WBC 6.3 K/mcL (4.5-11.0)
[2019-07-06 06:27] LABS: ALT/SGPT 25 U/l (0-40); AST/SGOT 18 U/l (0-37); Albumin 3.2 gm/dL (3.2-5.2); Albumin/Globulin Ratio 1.2 (1.0-2.3); Alkaline Phosphatase 95 U/L (39-117); Bilirubin,Direct < 0.2 mg/dL (0.0-0.3); Bilirubin,Total 0.3 mg/dL (0.0-1.0); Blood Urea Nitrogen 3 mg/dl (6-20); C-Reactive Protein 0.4 mg/dl (0.0-0.8); Calcium 8.3 mg/dl (8.6-10.4); Carbon Dioxide 24 mmol/L (22-30); Chloride 103 mmol/L (96-108); Globulin 2.6 gm/dL (2.2-3.7); Glomerular Filtration Rate 121; Glucose 137 mg/dL (70-105); Lactate Dehydrogenase 142 U/L (94-250); Phosphorous 3.2 mg/dL (2.7-4.5); Triglycerides 116 mg/dl (<150); Uric Acid 3.2 mg/dL (2.5-8.0)
[2019-07-06] MEDS: ESOMEPRAZOLE 40 MG VIAL IV SCH (07:49)
[2019-07-06] MEDS ORDERED: IOPAMIDOL 100 ML BOTTLE IV ONE (09:10)
[2019-07-06] MEDS: NICOTINE 14 MG PATCH TOPICAL SCH (09:35)
--- NOTE | 2019-07-06 12:38 | Cat Scan Report ---
CLINICAL INFORMATION: Pancreatitis COMPARISON: Abdomen and pelvic CT 07/04/2015 and 07/02/2019 TECHNIQUE: Following enteric contrast, 80ml of Isovue-370 were injected and 60 seconds later .625mm helical slices were obtained from the mid heart through the iliac crests. Following reconstructions, sagittal, coronal and axial reformatted images were processed. Exam was reviewed at bone, lung and soft tissue windows 5 minutes later repeat 5 mm helical slices were obtained through the kidneys. The exam was performed using radiation dose optimization techniques including, but not limited to, automated exposure control, adjustment of the mA and/or kV according to patient size and use of iterative reconstruction technique. FINDINGS: Lung bases show no abnormality - no effusion. The visualized heart is normal. Images should the abdomen show mild fatty change within the liver with more focally concentrated fat in the lateral segment left hepatic lobe along the ligament teres. This demonstrates long-term stability (07/04/2015). No focal significant focal hepatic lesions. Small amount of pericholecystic fluid is new from the previous exam. The inflammation, previously seen in the pancreatic parenchyma and surrounding fat, has almost totally resolved. A few mildly enlarged retroperitoneal lymph nodes nodes in the peripancreatic and periduodenal region are unchanged should represent benign reactive adenopathy related to pancreatitis. Both kidneys, adrenal glands, and aorta are normal. Scattered small benign low attenuation lesion within the spleen are stable since 2014. There are likely small hemangiomas or lymphangiomas. No free air, free fluid or adenopathy. Stomach and visualized small /large bowel are normal. Bone windows show no osseous abnormality IMPRESSION: 1. Interval resolution of pancreatitis. Few mildly enlarged retroperitoneal lymph nodes nodes in the peripancreatic and periduodenal region are unchanged and likely benign reactive adenopathy. 2. Minimal pericholecystic fluid which is new. Consider limited gallbladder ultrasound to evaluate for cholecystitis 3. Scattered low-attenuation splenic lesions - stable since 2014. They should be considered benign. Interpreted and Authenticated by: Eagle Rogers 07/06/19
--- NOTE | 2019-07-06 14:19 | Ultrasound Report ---
CLINICAL INFORMATION: Right upper quadrant pain COMPARISON: Abdomen CT 07/06/2019. FINDINGS: Liver normal in size and diffusely hyperechoic compatible with fatty change. Gallbladder contains a small amount of debris no stones or wall thickening suggests cholecystitis. Common bile duct is normal at 4 mm. Pancreas is unremarkable IMPRESSION: Mild fatty change within the liver. Gallbladder, bile ducts and pancreas are normal. Interpreted and Authenticated by: Eagle Rogers 07/06/19
--- NOTE | 2019-07-06 15:40 | Internal Med Progress Note ---
Medical - PN: Subj Patient information: Note initiated : 07/06/19 at 3:39 pm Service Date, if different from initiated Date: [] Patient: Azucena Almendarez a 38 y/o F admitted on 07/02/19 for "Pancreatitis". Chief Complaint: [] Interval history: Ms. Almendarez is a 38 year old F with a history of alcohol induced pancreatitis as well as peptic ulcer disease who presents with abdominal pain. Her chief complaint is "my pancreas hurts". Onset of the pain was yesterday when she woke up. Pain is in the epigastric, radiating to the left and right and to the back. It is up to 10/10 in intensity. She used Excedrin yesterday without much relief, had to work and reported to work. She comes to the ED today due to ongoing pain. Associated with nausea and emesis but no hematemesis. No diarrhea. She is felt warm but not had a documented fever. She has a history of pancreatitis in 2014, which was felt to be secondary to alcohol. She has no history of biliary disease, though does have her gallbladder. She also has a history of peptic ulcer disease with an EGD on 05/30/2015. In the emergency department, imaging was consistent with pancreatitis, lipase was elevated, she is being admitted for further treatment. She required multiple doses of IV opioids to control her pain in the ED. 9/2patient still with significant pain, requiring intravenous and oral opioids as well as Toradol. No nausea or vomiting. Tolerating sips and ice chips, does not feel she is ready to try clears. Pain is radiating into the back. Hemoglobin is not concentrating, actually decreased with hydration as expected with dilution. BUN stable, does not appear to be having significant third spacing. Complaining of a lot of heartburn. Currently on Pepcid twice daily intravenously. 9/3slowly improving. Better pain control on higher dose of hydromorphone. Less radiation into her back this morning. Feels like she might be able to try clear liquids. Reflux symptoms improved with acid suppression therapy. Discussed need to abstain from alcohol entirely to prevent any further episodes of pancreatitis. 9/4-patient needing excessive dose of opioid. However clinical finding disproportionate to lab and hemodynamic changes. Keep n.p.o./crystalloids. Repeat imaging in a.m., check CRP. Counseled for alcohol cessation. Lipase downtrending from 1200 to near normal level at 125 - Constitutional Vitals: Vital Signs Temp Pulse Resp BP Pulse Ox 98.7 F 59 L 16 110/70 97 07/06/19 08:00 07/06/19 08:00 07/06/19 08:00 07/06/19 08:00 07/06/19 08:00 Period Temp Pulse Resp BP Sys/[place] Pulse Ox Last 24 Hr 97.6 F-98.7 F 59-80 16-16 110-149/70-87 97-99 Intake and Output 07/06/19 07/06/19 07/06/19 05:59 13:59 21:59 Intake Total 1094 1000 Output Total 700 Balance 394 1000 Intake & Output: Intake & Output 07/06/19 07/06/19 07/06/19 05:59 13:59 21:59 Intake Total 1094 1000 Output Total 700 Balance 394 1000 Intake: IV 994 1000 Sodium Chloride 0.9% 1,000 ml @ 994 1000 125 mls/hr IV .Q8H [facility] Rx#: [id number] Oral 100 Output: Void Amount 700 Other: Urine Appearance Clear Urine Color Bright Yellow Bright Yellow Urine Odor Normal Medical - PN: Obj Da - Labs CBC & Chem 7: 07/06/19 04:45 07/06/19 04:45 Labs: Abnormal Lab Results 07/06/19 07/06/19 07/05/19 04:45 04:45 04:20 RBC 3.76 L Hgb RDW 15.4 H BUN 3 L 3 L Creatinine 0.5 L Glucose 137 H Uric Acid Calcium 8.3 L 8.2 L GGT 172 H 176 H AST ALT Total Protein 5.8 L 5.8 L Lipase 125 H 07/05/19 07/04/19 07/04/19 04:20 07:30 07:30 RBC 3.64 L 3.87 L Hgb 11.8 L RDW 15.3 H 16.0 H BUN 4 L Creatinine Glucose Uric Acid 2.3 L Calcium 8.1 L GGT 173 H AST 47 H ALT 46 H Total Protein Lipase 194 H Meds: Medications Acetaminophen (Tylenol) 650 mg PO Q6HP PRN PRN Reason: PAIN/FEVER > 101 Hydrocodone Bitart/Acetaminophen ([place] 5/325mg) 1 tab PO Q4HP PRN PRN Reason: PAIN LEVEL 3-6 Last Admin: 07/06/19 13:48 Dose: 1 tab Documented by: Al Hydrox/Mg Hydrox/Simethicone (Maalox) 30 ml PO Q4HP PRN PRN Reason: Dyspepsia Last Admin: 07/05/19 14:04 Dose: 30 ml Documented by: Esomeprazole Magnesium (Nexium) 40 mg IV QAMAC [facility] Last Admin: 07/06/19 07:49 Dose: 40 mg Documented by: Hydromorphone HCl (Dilaudid) 0.5 mg IV Q4HP PRN PRN Reason: PAIN LEVEL > 6 Last Admin: 07/06/19 14:17 Dose: 0.5 mg Documented by: Sodium Chloride (Sodium Chloride 0.9%) 1,000 mls @ 125 mls/hr IV .Q8H [facility] Last Admin: 07/06/19 12:14 Dose: 125 mls/hr Documented by: Nicotine (Nicoderm) 14 mg TOPICAL DAILY@1000 QAMAR Last Admin: 07/06/19 09:35 Dose: 14 mg Documented by: Ondansetron HCl (Zofran) 4 mg IV Q6HP PRN PRN Reason: Nausea And Vomiting Last Admin: 07/05/19 13:02 Dose: 4 mg Documented by: Prochlorperazine (Compazine) 5 mg IV Q4HP PRN PRN Reason: Nausea And Vomiting Sodium Chloride (Saline Flush) 10 ml IV Q8 [facility] Last Admin: 07/06/19 04:23 Dose: Not Given Documented by: Medical - PN: A/P - Time Spent With Patient Total time spent is greater than 50% in coordination of care (as documented) at patient's floor/unit and/or counseling patient:
--- NOTE | 2019-07-06 18:21 | Discharge Summary ---
Medical - DS: Prov Patient information: Note initiated : 07/06/19 at 6:19 pm Service Date, if different from initiated Date: [] Patient: Azucena Almendarez 38 y/o F admitted on 07/02/19 for "Pancreatitis". Chief Complaint: [] Date of admission: 07/02/19 14:23 Discharge date: 07/06/19 Primary care physician: Mena Atkins Consults: 07/02/19 Consult to Physician [CONS] Stat Comment: Consulting Provider: Danielle Fontenot Reason For Exam: Physician to Consult Medical - DS: Meds - Discharge Medications Prescriptions: RX: HYDROcodone/APAP 5/325MG [[place] 5-325Mg] 1 tab PO Q4HP PRN #20 tab PRN Reason: Pain Level 3-6 Active and Home Medications: Home Medications Omeprazole [PriLOSEC] 20 mg PO PRN PRN 08/09/16 [History Confirmed 07/02/19 Last Taken Unknown] Medical - DS: Hosp Hospital Course: Discharge diagnosis 38-year-old female with acute abdominal pain, biochemical and imaging evidence o f acute pancreatitis consistent with her exam. * Acute alcoholic pancreatitis. No evidence of pseudocyst or hemorrhage. Repeat CT shows near resolution of acute appendicitis. Lipase normalized. CR P 0.6. Patient now pain-free. Tolerating low-fat diet. Requesting discharge. Counseled on alcohol cessation to prevent future episodes of acute bronchitis. Patient unwilling to quit. States that she has to deal with other issues first. * Hypokalemia. Management oral and IV replacement * Abdominal pain -clinically improved. Continue additional 4 days as needed opioids Brief hospital course Ms. Almendarez is a 38 year old F with a history of alcohol induced pancreatitis as well as peptic ulcer disease who presents with abdominal pain. Her chief complaint is "my pancreas hurts". Onset of the pain was yesterday when she woke up. Pain is in the epigastric, radiating to the left and right and to the back. It is up to 10/10 in intensity. She used Excedrin yesterday without much relief, had to work and reported to work. She comes to the ED today due to ongoing pain. Associated with nausea and emesis but no hematemesis. No diarrhea. She is felt warm but not had a documented fever. She has a history of pancreatitis in 2014, which was felt to be secondary to alcohol. She has no history of biliary disease, though does have her gallbladder. She also has a history of peptic ulcer disease with an EGD on 05/30/2015. In the emergency department, imaging was consistent with pancreatitis, lipase was elevated, she is being admitted for further treatment. She required multiple doses of IV opioids to control her pain in the ED. 9/2patient still with significant pain, requiring intravenous and oral opioids as well as Toradol. No nausea or vomiting. Tolerating sips and ice chips, does not feel she is ready to try clears. Pain is radiating into the back. Hemoglobin is not concentrating, actually decreased with hydration as expected with dilution. BUN stable, does not appear to be having significant third spacing. Complaining of a lot of heartburn. Currently on Pepcid twice daily intravenously. 3slowly improving. Better pain control on higher dose of hydromorphone. Less radiation into her back this morning. Feels like she might be able to try clear liquids. Reflux symptoms improved with acid suppression therapy. Discussed need to abstain from alcohol entirely to prevent any further episodes of pancreatitis. 07/05-patient needing excessive dose of opioid. However clinical finding disproportionate to lab and hemodynamic changes. Keep n.p.o./crystalloids. Repeat imaging in a.m., check CRP. Counseled for alcohol cessation. Lipase downtrending from 1200 to near normal level at 125 07/06-patient doing well. Repeat CT scan reveals near total resolution of acute meningitis. Patient is pain-free. Able to tolerate low-fat diet. Discharging home with advised to continue follow-up with primary care physician and avoid alcohol intake to prevent future episodes of acute bronchitis. Patient at this time is unwilling clearly understand the risk of recurrent pancolitis and even . Discharge diagnosis: . - Time Spent with Patient Total time spent providing and/or coordinating discharge services: Greater than 30 minutes Medical - DS: Exam - Constitutional Vitals: Vital Signs Temp Pulse Resp BP Pulse Ox 07/06/19 12:00 98.8 F 62 18 112/68 98 07/06/19 08:00 98.7 F 59 L 16 110/70 97 07/06/19 04:00 98.3 F 80 16 113/70 97 07/05/19 23:28 98 F 75 16 141/85 99 07/05/19 19:15 98.1 F 78 16 130/83 98 Intake and Output 07/06/19 07/06/19 07/06/19 05:59 13:59 21:59 Intake Total 1094 1000 240 Output Total 700 400 Balance 394 1000 -160 Intake: IV 994 1000 Sodium Chloride 0.9% 1,000 ml @ 994 1000 125 mls/hr IV .Q8H [facility] Rx#: [id number] Oral 100 240 Output: Void Amount 700 400 Other: Urine Appearance Clear Urine Color Bright Yellow Bright Yellow Bright Yellow Urine Odor Normal Normal Medical - DS: Data Labs on day of discharge: Labs from last 24 hours 07/06/19 07/06/19 04:45 04:45 WBC 6.3 RBC 3.76 L Hgb 12.5 Hct 36.7 MCV 97.4 MCH 33.2 MCHC 34.1 RDW 15.4 H Plt Count 273 MPV 8.5 Gran % 53.9 Lymph % (Auto) 31.2 [place] % (Auto) 10.1 Eos % (Auto) 4.3 Baso % (Auto) 0.5 Gran # 3.4 Lymph # (Auto) 2.0 [place] # (Auto) 0.6 Eos # (Auto) 0.3 Baso # (Auto) 0 Sodium 137 Potassium 3.5 Chloride 103 Carbon Dioxide 24 Anion Gap 10.0 BUN 3 L Creatinine 0.5 L GFR Calculation 121 Glucose 137 H Uric Acid 3.2 Calcium 8.3 L Phosphorus 3.2 Magnesium 1.9 Total Bilirubin 0.3 Direct Bilirubin < 0.2 GGT 172 H AST 18 ALT 25 Alkaline Phosphatase 95 Lactate Dehydrogenase 142 C-Reactive Protein 0.4 Total Protein 5.8 L Albumin 3.2 Globulin 2.6 Albumin/Globulin Ratio 1.2 Triglycerides 116 Medical - DS: A/P - Patient/Caregiver Discharge Instructions Activity: increase activity as tolerated Diet: Low Fat Additional Instructions: Recommend against alcohol intake to prevent future episodes of acute bronchitis Return to ER if worsening abdominal pain nausea vomiting Prescriptions: RX: HYDROcodone/APAP 5/325MG [[place] 5-325Mg] 1 tab PO Q4HP PRN #20 tab PRN Reason: Pain Level 3-6 - Follow up Plan Follow up with: Mena Atkins ARNP [Primary Care Provider] - Disposition: Home, Self-Care Prognosis: Fair Rehab Potential: Fair I certify that the patient requires SNF services: No Overall status at discharge: patient is progressing back to baseline
== END 2019-07-06 19:27 | disposition home or self-care (01) | DRG 439 ==
LOC: ED 07:23 → MEDSUR 14:23
PROVIDERS: ADMIT Internal Medicine; ATTEND Internal Medicine